=== PATIENT | male | born 1955 | race Asian ===

== ENCOUNTER 2016-08-26 22:08 | Emergency (ER) | payer MEDICAID, MEDICARE ==
[~2016-08-26] VITALS: Ht 170.2 cm; Wt 73.0 kg
[2016-08-26 22:38] VITALS: BP 192/100
[2016-08-26] MEDS ORDERED: PREG50CA PO (23:22)
[2016-08-26] MEDS ORDERED: PRAV20TA2 PO (23:22)
[2016-08-26] MEDS ORDERED: AMLO5TAB2 PO (23:22)
== END 2016-08-26 23:47 | disposition home or self-care (01) ==
LOC: ED 23:30
DX: F32.2 Major depressive disorder, single episode, severe without psychotic features (principal); I10 Essential (primary) hypertension; F41.1 Generalized anxiety disorder
CPT/HCPCS: 99284